=== PATIENT | male | born 1980 | race Caucasian/White ===

== ENCOUNTER 2018-12-16 23:19 | Emergency (ER) | payer OTHER ==
[2018-12-17] MEDS: DIPHENHYDRAMINE 50 MG CAP PO (01:24)
[2018-12-17] MEDS: FAMOTIDINE 20 MG TAB PO (01:24)
[2018-12-17] MEDS: predniSONE 20 MG TAB PO (01:25)
== END 2018-12-17 01:30 | disposition home or self-care (01) ==
LOC: FTE 23:19
DX: T78.1XXA Other adverse food reactions, not elsewhere classified, initial encounter (principal); J45.909 Unspecified asthma, uncomplicated; F17.210 Nicotine dependence, cigarettes, uncomplicated; R22.1 Localized swelling, mass and lump, neck
CPT/HCPCS: 99283; Z7502